=== PATIENT | female | born 2000 | race Caucasian/White ===

== ENCOUNTER 2024-06-28 15:35 | Emergency (ER) | payer SELFPAY ==
[2024-06-28 15:57] VITALS: BP 114/83; PULSE 86; RESP 16; TEMP 36.3; O2SAT 100
--- NOTE | 2024-06-28 16:54 | PC.NURSE ---
Patient not found in lobby when called for MSE.
== END 2024-06-28 17:31 | disposition left against medical advice (07) ==
LOC: ANHED 17:28
DX: R19.7 Diarrhea, unspecified (principal)
CPT/HCPCS: 99199

== ENCOUNTER 2024-06-29 00:48 | Emergency (ER) | payer BC, SELFPAY ==
[2024-06-29 00:51] VITALS: BP 127/92; PULSE 76; RESP 14; TEMP 36.8; O2SAT 100
--- NOTE | 2024-06-29 01:09 | ED_ITS ---
HPI - Abdominal Pain General Chief Complaint: Abdominal Pain Stated Complaint: Abd pain Time Seen by Provider: 06/29/24 01:01 History of Present Illness HPI narrative: 23-year-old otherwise healthy female presenting to the emergency room with a chief complaint of diarrhea for last 3 days. She states that she has been having 3 is some vague abdominal cramping and episodes of diarrhea up to 10 times per day. She describes as loose, yellow discoloration and watery. Denies any recent travel or injuries. No new foods or concern for food poisoning ordered the patient. She states that she does not have any abdominal cramping presently in her last bowel movement with loose watery stools which is prior to arrival. Denies any fevers or chills. No back pain, chest pain, shortness a breath. Endorses some mild nausea without vomiting. States that pretty quickly after she eats or drinks anything she has sees the bathroom with diarrhea. No family history of IBS or inflammatory bowel disease. She was otherwise in her normal state of health. Related Data Allergies Allergy/AdvReac Type Severity Reaction Status Date / Time No Known Allergies Allergy Verified 06/29/24 00:48 Review of Systems Review of Systems: As reviewed above in HPI Exam Narrative: GENERAL: [Well-appearing, well-nourished, and in no acute distress.] HEAD: [Normocephalic, atraumatic.] EYES: [PERRLA and EOMI.] ENT: Nares clear, no rhinorrhea or epistaxis. Mucous membranes moist. NECK: Supple. CHEST: [Clear to auscultation. No respiratory distress.] HEART: [Regular rate and rhythm]. No murmur heard. [Normal peripheral pulses.] ABDOMEN: [Soft, nondistended], [nontender], [No rigidity or guarding] EXTREMITIES: Normal range of motion. [No edema.] SKIN: Warm, dry, no rash. NEURO: [No focal deficits]. Alert and oriented [x3.] PSYCH: [Normal mood and affect.] Course Vital Signs Vital signs: Vital Signs Temperature 36.8 C 06/29/24 00:51 Pulse Rate 76 06/29/24 00:51 Respiratory Rate 14 06/29/24 00:51 Blood Pressure 127/92 H 06/29/24 00:51 Pulse Oximetry 100 11/08/24 00:51 Oxygen Delivery Room Air 06/29/24 00:51 Temperature 36.8 C 06/29/24 00:51 Pulse Rate 76 06/29/24 00:51 Respiratory Rate 14 06/29/24 00:51 Blood Pressure 127/92 H 06/29/24 00:51 Pulse Oximetry 100 06/29/24 00:51 Oxygen Delivery Room Air 06/29/24 00:51 MDM - Abdominal Pain MDM Narrative Medical decision making narrative: 23-year-old female who is otherwise healthy presenting to the emergency room with 3 days of vague abdominal cramping and diarrhea. She states she is having loose yellow watery stool and abdominal cramping. She has tried Pepto-Bismol with minimal relief for cramping but still having diarrhea. No other remedies or antidiarrheal agents. She has normal vital signs with any fever, blood pressure concerns, tachycardia. She appears well hydrated not any acute distress. Abdomen is soft nontender nondistended. Patient denies any new foods or potential exposures but she could be having a bacterial versus viral gastroenteritis. Possible food poisoning versus other enteritis. She overall appears well and well-hydrated 90 not suspect or choir any advanced imaging at this time. Will obtain basic laboratory studies and assess her or in function as well as any potential white count elevations. We will treat her with Bentyl and Zofran for symptom control and patient will be discharged home with symptom control medications including loperamide, Bentyl and Zofran as needed. Patient's laboratory studies show no leukocytosis or anemia. Very minor hypokalemia 3.3 just under normal and likely from diarrheal illness, no need for acute replacement therapy at this time. Normal renal function normal hepatic function. Urinalysis with some squamous cells and contamination but no overt evidence of urinary infection. Patient was re-evaluated after medications and improvement her symptoms. Patient is stable for discharge home at this time with medications for symptom control including Bentyl and loperamide. Medical Records Attestation: I reviewed the patient's medical records. Lab Data Attestation: I reviewed the patient's lab results. 06/29/24 01:08 06/29/24 01:08 Labs: Lab Results 06/29/24 Range/Units 01:08 WBC 5.1 (4.5-10.0) K/mm3 RBC 5.03 (4.2-5.4) M/mm3 Hgb 14.6 (12.0-15.0) g/dL Hct 43.0 (37.0-47.0) % MCV 85.5 (80-100) fl MCH 29.0 (26-34) pg MCHC 34.0 (32-36) g/dl RDW 12.9 (11.5-14.5) % Plt Count 226 (150-375) k/mm3 MPV 10.7 H (7.4-10.4) fl Immature Gran % (Auto) 0.2 (0-0.5) % Neut % (Auto) 43.5 L (45.5-73.1) % Lymph % (Auto) 40.6 (18.3-44.2) % [place] % (Auto) 11.2 H (2.6-8.5) % Eos % (Auto) 3.9 (0-4.4) % Baso % (Auto) 0.6 (0.2-1.2) % Lymph # (Auto) 2.07 (0.9-3.2) K/mm3 [place] # (Auto) 0.6 (0.1-0.6) K/mm3 Eos # (Auto) 0.2 (0-0.3) K/mm3 Baso # (Auto) 0.0 (0.0-0.1) K/mm3 Abs Immat Gran (auto) 0.01 (0.00-0.031) K/mm3 Absolute Neuts (auto) 2.2 (1.3-6.7) K/mm3 Absolute Nucleated RBC 0.000 (0.0-0.012) K/mm3 Nucleated RBC % 0.0 (0.0-0.2) % Sodium 142 (137-145) mmol/L Potassium 3.3 L (3.4-5.0) mmol/L Chloride 107 (98-107) mmol/L Carbon Dioxide 24 (22-30) mmol/L Anion Gap 11 (4-12) mmol/L BUN 9 (7-17) mg/dL Creatinine 0.70 (0.7-1.0) mg/dL Estim Creat Clear Calc 103 ml/min Estimated GFR > 60 (59 - ) Glucose 77 (65-110) mg/dL Calcium 9.3 (8.4-10.2) mg/dL Total Bilirubin 0.3 (0.2-1.3) mg/dL AST 18 (14-36) U/L ALT 17 (6-35) U/L Alkaline Phosphatase 83 (38-126) U/L Total Protein 8.0 (6.3-8.2) g/dL Albumin 4.8 (3.5-5.1) g/dL Lipase 59 (23-300) U/L Urine Color Yellow (Yellow) Urine Appearance Clear (Clear) Urine pH 6.0 (5.0-9.0) Ur Specific [place] >= 1.030 (1.001-1.035) Urine Protein Trace (Negative) mg/dL Urine Glucose (UA) Negative (Negative) mg/dL Urine Ketones Negative (Negative) mg/dL Ur Blood (Man) 1+ H (Negative) Urine Nitrate Negative (Negative) Urine Bilirubin Negative (Negative) Urine Urobilinogen 0.2 (<2.0) mg/dL Add Ur Microanalysis Reviewed Leukocyte Esterase Rfl Negative (Negative) JAMAAL/UL Urine RBC 3-5 H (0-2) /hpf Urine WBC 6-10 H (0-3) /hpf Ur Squamous Epith Cells Moderate (Few) /hpf Calcium Oxalate Crystal Present (None) /hpf Urine Bacteria 2+ H /hpf Urine Casts 0-2 Urine Mucus Present /lpf Urine Test Negative Discharge Plan Discharge Clinical Impression: Gastroenteritis, Diarrhea Patient Disposition: Home, Self-Care Condition: Stable Instructions: Antibiotic Form, Gastroenteritis (DC), Acute Diarrhea (ED) Additional Instructions: We will send you home with some medications to try for symptom relief. Return at any point with any new or worsening concerns. Follow-up with regular primary care provider. Prescriptions: New loperamide [Anti-Diarrheal (loperamide)] 2 mg capsule 2 mg PO Q6H PRN (Reason: loose stool) Qty: 14 0RF dicyclomine 20 mg tablet 20 mg PO TID PRN (Reason: abdominal pain) Qty: 20 0RF Follow-up/Referrals: PHYSICIAN,SQL REPORT WRITER [Primary Care Provider] - [place] MD [Physician] - 1 Week (Establish PCP) Time of Disposition: 02:24
[2024-06-29 01:14] LABS: Basophils Percent Auto 0.6 % (0.2-1.2); Eosinophils Absolute Auto 0.2 K/mm3 (0-0.3); Eosinophils Percent Auto 3.9 % (0-4.4); Hemoglobin 14.6 g/dL (12.0-15.0); Immature Granulocyte Absolute 0.01 K/mm3 (0.00-0.031); Immature Granulocyte Percent A 0.2 % (0-0.5); Lymphocytes Absolute Auto 2.07 K/mm3 (0.9-3.2); Lymphocytes Percent Auto 40.6 % (18.3-44.2); Mean Corpuscular Volume 85.5 fl (80-100); Mean Platelet Volume 10.7 fl (7.4-10.4); Monocytes Absolute Auto 0.6 K/mm3 (0.1-0.6); Monocytes Percent Auto 11.2 % (2.6-8.5); Neutrophils Absolute Auto 2.2 K/mm3 (1.3-6.7); Neutrophils Percent Auto 43.5 % (45.5-73.1); Platelet Count Result 226 k/mm3 (150-375); Red Blood Count 5.03 M/mm3 (4.2-5.4); Red Cell Distribution Width 12.9 % (11.5-14.5); White Blood Count 5.1 K/mm3 (4.5-10.0)
[2024-06-29] MEDS: DICYCLOMINE HCL 10 MG CAPSULE 20 MG PO (01:21)
[2024-06-29] MEDS: ONDANSETRON HCL ODT 4 MG TABLET PO (01:22)
[2024-06-29 01:23] LABS: Pregnancy On Board Control Positive; Urine Pregnancy Test Negative
[2024-06-29 01:25] LABS: Alanine Aminotransferase 17 U/L (6-35); Albumin Level 4.8 g/dL (3.5-5.1); Alkaline Phosphatase 83 U/L (38-126); Anion Gap 11 mmol/L (4-12); Aspartate Amino Transferase 18 U/L (14-36); Bilirubin,Total 0.3 mg/dL (0.2-1.3); Blood Urea Nitrogen 9 mg/dL (7-17); Calcium 9.3 mg/dL (8.4-10.2); Carbon Dioxide 24 mmol/L (22-30); Chloride 107 mmol/L (98-107); Estimated CRCL calculation 103 ml/min; Estimated Glomerular Filt Rate > 60; Glucose 77 mg/dL (65-110); Lipase 59 U/L (23-300); Potassium 3.3 mmol/L (3.4-5.0); Sodium 142 mmol/L (137-145)
[2024-06-29 01:31] LABS: Bacteria Urine 2+ /hpf; Calcium Oxalate Crystals Urine Present /hpf; Mucus Urine Present /lpf; Need Manual Microscopic Reviewed; Non Pathogenic Casts 0-2; Squamous Epithelial Cell Urine Moderate /hpf (Few)
[2024-06-29 01:32] LABS: Add Urine Microscopic? YES
[2024-06-29 01:33] LABS: Appearance Urine Clear (Clear); Bilirubin Urine Negative (Negative); Blood Urine 1+ (Negative); Color Urine Yellow (Yellow); Glucose Urine UA Negative (Negative); Ketones Urine Negative (Negative); Nitrate Urine Negative (Negative); Protein Urine Trace mg/dL (Negative); Specific Grav Ur >= 1.030 (1.001-1.035)
[2024-06-29 01:34] LABS: Leukocyte Esterase Ur Negative LEU/UL (Negative); Urobilinogen Urine 0.2 mg/dL (<2.0)
[2024-06-29 02:30] VITALS: BP 122/84; PULSE 78; RESP 18; O2SAT 100
== END 2024-06-29 02:33 | disposition home or self-care (01) ==
PROVIDERS: Physician Assistant; Emergency Provider Student in an Organized Health Care Education/Training Program
DX: K52.9 Noninfective gastroenteritis and colitis, unspecified (principal)
CPT/HCPCS: 36415; 80053; 81001; 81025; 83690; 85025; 99283; A9270